=== PATIENT | female | born 1950 | race Caucasian/White ===

== ENCOUNTER → 2016-09-24 | Outpatient (CLI) | payer OTHER ==
--- NOTE | 2016-09-24 12:36 | MA ---
Screening Digital Mammogram With Tomosynthesis Clinical Indications: Routine screening. Technique: Standard digital cephalocaudal and tomosynthesis mediolateral oblique projections are obt ained. An oblique lateral digital view is performed of the left breast. The digital images are proces sed by the [employer] computer aided detection system. Comparison: August 2015, August 2014, August 2013, August 2012 and August 2011 Breast density: C; The breast tissue is heterogeneously dense, which could obscure detection of small masses. Findings: CAD was reviewed. No suspicious findings are identified. Impression: Negative mammogram. BI-RADS 1. Recommendation: Routine screening is recommended in one year, as long as physical examination is luis a ign in this patient with moderately dense breast parenchyma. [facility] will send a result letter to the patient. Negative mammography should not preclude additional workup of a clinically suspicious finding. The patient's information is entered into a reminder system with a target due date for her next mammo gram.
== END ==
LOC: FIMAGING 09:40
DX: Z12.31 Encounter for screening mammogram for malignant neoplasm of breast (principal)
CPT/HCPCS: G0202

== ENCOUNTER → 2017-07-15 | Outpatient (CLI) | payer OTHER | LOC: FIMAGING 09:45 | PROVIDERS: ATTEND Internal Medicine | DX: Z13.820 Encounter for screening for osteoporosis (principal); M85.89 Other specified disorders of bone density and structure, multiple sites ==

== ENCOUNTER → 2017-09-30 | Outpatient (CLI) | payer OTHER | LOC: FIMAGING 09:41 | PROVIDERS: ATTEND Internal Medicine | DX: Z12.31 Encounter for screening mammogram for malignant neoplasm of breast (principal) ==

== ENCOUNTER → 2018-10-06 | Outpatient (CLI) | payer OTHER | LOC: FIMAGING 08:41 | PROVIDERS: ATTEND Internal Medicine | DX: Z12.31 Encounter for screening mammogram for malignant neoplasm of breast (principal) ==